=== PATIENT | male | born 1950 | race Caucasian/White ===

== ENCOUNTER → 2016-12-10 | Outpatient (CLI) | payer MEDICARE, BC ==
[~2016-12-10] MED LIST: ADVIL200 MG PO; ZEBETA 5MG5 MG PO
== END ==
LOC: COL.RAD 08:50
DX: C22.0 Liver cell carcinoma (principal)
CPT/HCPCS: A9503

== ENCOUNTER → 2018-04-22 | Outpatient (CLI) | payer MEDICARE, BC ==
[~2018-04-22] VITALS: Ht 172.7 cm; Wt 83.7 kg
[~2018-04-22] MED LIST changes: +MICRO-K 10 EXT10 MEQ PO; +water pill PO
[2018-04-22 09:44] VITALS: BP 101/71; PULSE 89
[2018-04-22 10:57] VITALS: BP 98/64; PULSE 89
[2018-04-22 11:26] LABS: PERITONEAL -POLYMORPHONUCLEAR 9.6 % (0-25); PERITONEAL FLUID RBC 0 /mm3 (0-0)
== END ==
LOC: COL.RAD 09:23
PROVIDERS: Internal Medicine
DX: C22.0 Liver cell carcinoma (principal); R18.8 Other ascites